=== PATIENT | female | born 1945 | race Caucasian/White ===

== ENCOUNTER 2024-01-26 06:00 | Day surgery (SDC) | payer MEDICARE, OTHER ==
[~2024-01-26 06:00] MED LIST: Sodium Chloride 0.9% 10 ML Syringe FLUSH PRN; Sodium Chloride 0.9% 10 ML Syringe FLUSH SCH
[2024-01-26] MEDS: Lactated Ringers 1,000 ML IV SCH (06:15)
[2024-01-26] MEDS ORDERED: ceFAZolin 2 GM Vial ONE (06:33)
[2024-01-26] MEDS ORDERED: Propofol 200 MG/20 ML SDV ONE ×2 (06:34→07:45)
[2024-01-26] MEDS ORDERED: fentaNYL 100 MCG/2 ML SDV ONE (06:35)
[2024-01-26] MEDS ORDERED: Lactated Ringers 1,000 ML ONE (07:44)
[2024-01-26] MEDS: Morphine 8 MG, EPINEPHrine 0.3 MG, Cefuroxime 750 MG, Ketorolac 30 MG, Sodium Chloride ... PRN (07:49)
[2024-01-26] MEDS: Vancomycin 1 GM SDV ONE (07:49)
[2024-01-26] MEDS: Tranexamic Acid 1,000 MG/10 ML Vial ONE (07:50)
[2024-01-26] MEDS ORDERED: Ketorolac 15 MG/ML SDV ONE (08:21)
[2024-01-26] MEDS ORDERED: Ondansetron 4 MG/2 ML SDV ONE (08:21)
[2024-01-26] MEDS: Acetaminophen/HYDROcodone 325-5 MG Tab PO PRN (12:00)
== END 2024-01-26 17:35 | disposition home or self-care (01) ==
LOC: JD.SDS 06:00
PROVIDERS: ATTEND Orthopaedic Surgery
DX: M16.12 Unilateral primary osteoarthritis, left hip (principal); E11.9 Type 2 diabetes mellitus without complications; I10 Essential (primary) hypertension; E78.00 Pure hypercholesterolemia, unspecified; Z79.84 Long term (current) use of oral hypoglycemic drugs; Z79.899 Other long term (current) drug therapy; Z91.041 Radiographic dye allergy status; Z91.048 Other nonmedicinal substance allergy status; Z88.6 Allergy status to analgesic agent
CPT/HCPCS: 0055T; 27130; 36415; 73501; 86850; 86900; 86901; 97110; 97116; 97161; A9270; C1713; C1776; J0171; J0690; J0697; J1885; J2270; J2405; J2704; J3010; J3370; J7120; 01214; 99100; J3490